=== PATIENT | female | born 1940 | race Caucasian/White ===

== ENCOUNTER 2021-06-10 16:54 | Inpatient (IN) | payer MEDICARE, OTHER ==
[~2021-06-10] VITALS: Ht 157.5 cm; Wt 65.8 kg
[2021-06-10 17:58] LABS: HEMOGLOBIN 14.2 gm/dl (12.3-15.3); RED BLOOD COUNT 4.7 M/UL (4.00-5.10)
[2021-06-11 04:25] LABS: WHITE BLOOD COUNT 6.8 K/UL (4.5-11.0)
[2021-06-11 04:30] LABS: RED BLOOD COUNT 3.93 M/UL (4.00-5.10)
[2021-06-11] MEDS ORDERED: CELECOXIB100 MG PO (11:12)
[2021-06-11] MEDS ORDERED: TRAMADOL HCL50 MG PO (11:13)
[2021-06-11] MEDS ORDERED: QUINAPRIL-HCTZ1 EAC1 PO (11:13)
[2021-06-12 06:40] LABS: HEMOGLOBIN 12.7 gm/dl (12.3-15.3); RED BLOOD COUNT 4.27 M/UL (4.00-5.10); WHITE BLOOD COUNT 8.5 K/UL (4.5-11.0)
[2021-06-13 06:34] LABS: HEMOGLOBIN 12.6 gm/dl (12.3-15.3); RED BLOOD COUNT 4.24 M/UL (4.00-5.10); WHITE BLOOD COUNT 6.8 K/UL (4.5-11.0)
[2021-06-14 07:56] LABS: RED BLOOD COUNT 4.39 M/UL (4.00-5.10)
[2021-06-14 07:59] LABS: WHITE BLOOD COUNT 8.9 K/UL (4.5-11.0)
[2021-06-17 06:59] LABS: HEMOGLOBIN 12.5 gm/dl (12.3-15.3); RED BLOOD COUNT 4.17 M/UL (4.00-5.10); WHITE BLOOD COUNT 7.6 K/UL (4.5-11.0)
--- NOTE | 2021-06-18 10:41 | NUR ---
PATIENT NOTED TO BE BRADYCARDIC ON THE TELE WITH RATES IN THE MID 30'S TO LOW 40'S. MD MADE AWARE AND STATES THAT SHE WILL COME SEE THE PATIENT AT THIS TIME. PATIENT IN NO DISTRESS ALL OTHER VITALS STABLE AT THIS TIMME.
[2021-06-21 06:55] LABS: HEMOGLOBIN 13.1 gm/dl (12.3-15.3); RED BLOOD COUNT 4.36 M/UL (4.00-5.10)
[2021-06-23 12:50] LABS: BUN/CREATININE RATIO 46 (0-10)
[2021-06-25 06:59] LABS: BUN/CREATININE RATIO 33 (0-10)
[2021-06-25] MEDS ORDERED: CENTRUM MU9 MG/15 ML PO (15:01)
== END 2021-06-25 16:47 | disposition home or self-care (01) | DRG 177 ==
LOC: ER1 16:54 → CDU 21:03 → MED SURG 4 21:03
PROVIDERS: Internal Medicine; Internal Medicine Infectious Disease; Internal Medicine Nephrology; Physician Assistant; ADMIT Internal Medicine
PROC: 3E033XZ Introduction of Vasopressor into Peripheral Vein, Percutaneous Approach (ICD-10-PCS; principal; 2021-06-10)
PROC: 8E0ZXY6 Isolation (ICD-10-PCS; 2021-06-10)
PROC: XW033G6 Introduction of REGN-COV2 Monoclonal Antibody into Peripheral Vein, Percutaneous Approach, New Technology Group 6 (ICD-10-PCS; 2021-06-11)
PROC: 3E0333Z Introduction of Anti-inflammatory into Peripheral Vein, Percutaneous Approach (ICD-10-PCS; 2021-06-12)
PROC: B24BZZ4 Ultrasonography of Heart with Aorta, Transesophageal (ICD-10-PCS; 2021-06-12)
DX: U07.1 COVID-19 (principal); J12.82 Pneumonia due to coronavirus disease 2019; J96.01 Acute respiratory failure with hypoxia; N17.0 Acute kidney failure with tubular necrosis; E87.0 Hyperosmolality and hypernatremia; E87.6 Hypokalemia; F03.90 Unspecified dementia, unspecified severity, without behavioral disturbance, psychotic disturbance, mood disturbance, and anxiety; I95.9 Hypotension, unspecified; E86.1 Hypovolemia; E86.0 Dehydration; I12.9 Hypertensive chronic kidney disease with stage 1 through stage 4 chronic kidney disease, or unspecified chronic kidney disease; R62.7 Adult failure to thrive; N18.30 Chronic kidney disease, stage 3 unspecified; I48.0 Paroxysmal atrial fibrillation; Z79.01 Long term (current) use of anticoagulants; Z68.26 Body mass index [BMI] 26.0-26.9, adult; Z23 Encounter for immunization
CPT/HCPCS: ECHO; 36415; 71045; 80048; 80053; 82436; 82550; 82553; 82607; 83605; 83615; 83735; 83935; 84132; 84133; 84300; 84443; 84484; 85025; 85027; 85379; 86140; 87040; 92526; 92610; 93005; 93306; 94760; 97110; 97110-GP-CQ; 97162; 97167; 97530; 97530-GP-CQ; 97535; 99285; J0456; J0461; J0696; J1100; J1160; J1630; J1650; J3480; J7030; J7070; J7121

== ENCOUNTER → 2022-01-16 | Outpatient (CLI) | payer MEDICARE, OTHER ==
[~2022-01-16] MED LIST: CELECOXIB100 MG PO; CENTRUM MU9 MG/15 ML PO; QUINAPRIL-HCTZ1 EAC1 PO; TRAMADOL HCL50 MG PO
== END ==
LOC: KOH-I 12:52
DX: M25.552 Pain in left hip (principal); M54.50 Low back pain, unspecified; M47.816 Spondylosis without myelopathy or radiculopathy, lumbar region; M40.56 Lordosis, unspecified, lumbar region
CPT/HCPCS: 72100; 73502

== ENCOUNTER → 2022-02-08 | Outpatient (CLI) | payer MEDICARE, OTHER | LOC: MRI 13:00 | DX: M15.0 Primary generalized (osteo)arthritis (principal) | CPT/HCPCS: 73718 ==

== ENCOUNTER 2022-03-06 10:27 | Emergency (ER) | payer MEDICARE ==
[2022-03-06 11:17] LABS: HEMOGLOBIN 12.5 gm/dl (12.3-15.3); RED BLOOD COUNT 3.95 M/UL (4.00-5.10); WHITE BLOOD COUNT 7.9 K/UL (4.5-11.0)
[2022-03-06 11:44] LABS: BUN/CREATININE RATIO 32 (0-10)
[2022-03-06] MEDS ORDERED: MIRTAZAPINE15 MG PO (13:23)
[2022-03-06] MEDS ORDERED: PREDNISONE10 MG PO (13:23)
[2022-03-06] MEDS ORDERED: DONEPEZIL HCL10 MG PO (13:23)
[2022-03-06] MEDS ORDERED: DEPAKOTE125 MG PO (13:24)
== END 2022-03-06 13:30 ==
LOC: ER1 10:27
PROVIDERS: Emergency Medicine
DX: I62.9 Nontraumatic intracranial hemorrhage, unspecified (principal); I10 Essential (primary) hypertension; Z20.822 Contact with and (suspected) exposure to COVID-19
CPT/HCPCS: 51702; 70450; 70496; 70498; 71045; 80053; 81001; 82550; 82553; 82962; 84484; 85025; 85610; 85730; 93005; 96374; 99285; Q9967; U0002